=== PATIENT | male | born 1970 | race Caucasian/White ===

== ENCOUNTER 2024-11-08 15:58 | Inpatient (IN) | payer MEDICAID, OTHER ==
[~2024-11-08] VITALS: Ht 170.2 cm; Wt 99.3 kg
[~2024-11-08 15:58] MED LIST: QUET200T PO; QUET300T2 PO
[2024-11-08 16:27] LABS: PLATELET COUNT (AUTO) 257 K/uL (150-450); RED BLOOD CELL COUNT(AUTO) 5.65 MIL/uL (4.50-5.90); RED CELL DISTRIBUTION WIDTH 13.8 % (11.5-14.5); WHITE BLOOD COUNT (AUTO) 13.5 K/uL (4.5-11.0)
[2024-11-08 16:38] LABS: CALCIUM, TOTAL 8.8 mg/dL (8.8-10.5); CREATININE 0.97 mg/dL (0.60-1.30); GLOMERULAR FILTR. RATE CALC > 60 mL/min (>60); GLUCOSE,RANDOM 167 mg/dL (70-110); SODIUM SERUM 140 mmol/L (136-145); UREA NITROGEN, BLOOD 23 mg/dL (7-18)
[2024-11-08] MEDS: POTASSIUM CHLORIDE 20 MEQ ER TABLET PO ONE (18:09)
[2024-11-08] MEDS ORDERED: ZOLPIDEM TARTRATE 10 MG TABLET PO PRN (18:45)
[2024-11-08 19:48] LABS: COVID AG,FIA SOURCE NASAL SWAB
[2024-11-08 20:06] LABS: SARS-COV2 (COVID) ANTIGEN,FIA Negative (Negative)
[2024-11-08 20:07] LABS: ALCOHOL, URINE DRUG SCREEN NEGATIVE (NEGATIVE); AMPHET/METH SCREEN,URINE NEGATIVE (NEGATIVE); BARBITURATE SCREEN, URINE NEGATIVE (NEGATIVE); CANNABINOID SCREEN,URINE NEGATIVE (NEGATIVE); COCAINE SCREEN,URINE NEGATIVE (NEGATIVE); METHADONE SCREEN, URINE NEGATIVE (NEGATIVE)
[2024-11-08 20:08] LABS: PH,URINE DRUG SCREEN 6.0 (5.0-8.0)
[2024-11-09] MEDS: POTASSIUM CHLORIDE 20 MEQ ER TABLET PO ONE (00:58)
[2024-11-09 02:19] VITALS: O2SAT 95
[2024-11-09 03:36] LABS: GLUCOMETER DEV NAME(LOC) BV3S.2; GLUCOSE,POINT OF CARE 182 MG/DL (70-110)
[2024-11-09] MEDS ORDERED: MAGNESIUM HYDROXIDE SUSPENSION 30 ML UDCUP PO PRN (08:15)
[2024-11-09] MEDS ORDERED: BACITRACIN 28 GM OINTMENT TP PRN (08:15)
[2024-11-09] MEDS ORDERED: OMEPRAZOLE 20 MG CAPSULE PO PRN (08:15)
[2024-11-09] MEDS ORDERED: ALBUTEROL SULFATE HFA 90 MCG/PUFF 8 GM INHALER IH PRN (08:15)
[2024-11-09] MEDS ORDERED: MAG HYDROX/ALUMINUM HYD/SIMETH ES 30 ML SUSPENSION UDCUP PO PRN (08:15)
[2024-11-09] MEDS ORDERED: ONDANSETRON 4 MG TABLET PO PRN (08:15)
[2024-11-09] MEDS ORDERED: IBUPROFEN 600 MG TABLET PO PRN (08:15)
[2024-11-09] MEDS ORDERED: DOCUSATE SODIUM 100 MG CAPSULE PO PRN (08:15)
[2024-11-09] MEDS ORDERED: PETROLATUM,WHITE 28 GM JELLY TP PRN (08:15)
[2024-11-09 08:30] VITALS: RESP 18
[2024-11-09 09:16] LABS: PLATELET COUNT (AUTO) 243 K/uL (150-450); RED BLOOD CELL COUNT(AUTO) 5.42 MIL/uL (4.50-5.90); RED CELL DISTRIBUTION WIDTH 14.1 % (11.5-14.5); WHITE BLOOD COUNT (AUTO) 9.9 K/uL (4.5-11.0)
[2024-11-09 09:34] LABS: ASPARTATE AMINOTRANSFERASE 235 U/L (15-37); CALCIUM, TOTAL 8.6 mg/dL (8.8-10.5); CHOL/HDL RATIO 3.2 (4.2-7.3); CREATININE 0.87 mg/dL (0.60-1.30); GLOMERULAR FILTR. RATE CALC > 60 mL/min (>60); GLUCOSE,RANDOM 189 mg/dL (70-110); LDL CHOL (CALC.) 58 mg/dL (0-130); SODIUM SERUM 138 mmol/L (136-145); TOTAL PROTEIN, SERUM 7.5 g/dL (6.4-8.2); UREA NITROGEN, BLOOD 17 mg/dL (7-18)
[2024-11-09] MEDS ORDERED: GLUCAGON,HUMAN RECOMBINANT 1 MG VIAL IM PRN (10:15)
[2024-11-09] MEDS: BRIMONIDINE TARTRATE 0.2% 5 ML OPHTHALMIC SOLUTION OU SCH (10:15)
[2024-11-09] MEDS: INSULIN LISPRO 100 UNITS/ML SQ PRN (11:07)
[2024-11-09] MEDS: EMPAGLIFLOZIN 25 MG TABLET PO SCH (11:09)
[2024-11-09] MEDS: ASPIRIN 81 MG DR TABLET PO SCH (11:09)
[2024-11-09 19:41] LABS: GLUCOMETER DEV NAME(LOC) BV3S.2; GLUCOSE,POINT OF CARE 156 MG/DL (70-110)
[2024-11-09 19:41] LABS: GLUCOMETER DEV NAME(LOC) BV3S.2; GLUCOSE,POINT OF CARE 191 MG/DL (70-110)
[2024-11-09 20:08] VITALS: BP 132/86; PULSE 99; RESP 18; TEMP 98.3; O2SAT 97
[2024-11-09] MEDS: ATORVASTATIN CALCIUM 20 MG TABLET PO SCH (20:55)
[2024-11-10 06:55] LABS: GLUCOMETER DEV NAME(LOC) BV3S.2; GLUCOSE,POINT OF CARE 162 MG/DL (70-110)
[2024-11-10 06:55] LABS: GLUCOMETER DEV NAME(LOC) BV3S.2; GLUCOSE,POINT OF CARE 163 MG/DL (70-110)
[2024-11-10 08:22] VITALS: BP 141/79; PULSE 97; RESP 17; TEMP 98.1; O2SAT 99
[2024-11-10 10:15] LABS: ASPARTATE AMINOTRANSFERASE 170 U/L (15-37); CALCIUM, TOTAL 8.4 mg/dL (8.8-10.5); CREATININE 0.77 mg/dL (0.60-1.30); GLOMERULAR FILTR. RATE CALC > 60 mL/min (>60); GLUCOSE,RANDOM 151 mg/dL (70-110); SODIUM SERUM 137 mmol/L (136-145); TOTAL PROTEIN, SERUM 7.3 g/dL (6.4-8.2); UREA NITROGEN, BLOOD 12 mg/dL (7-18)
[2024-11-10 20:18] VITALS: BP 143/69; PULSE 100; RESP 18; TEMP 98.4; O2SAT 98
[2024-11-11 02:16] LABS: GLUCOMETER DEV NAME(LOC) BV3S.2; GLUCOSE,POINT OF CARE 153 MG/DL (70-110)
[2024-11-11 02:16] LABS: GLUCOMETER DEV NAME(LOC) BV3S.2; GLUCOSE,POINT OF CARE 140 MG/DL (70-110)
[2024-11-11] MEDS: ACETAMINOPHEN 325 MG TABLET PO PRN (05:03)
[2024-11-11 05:05] VITALS: RESP 18
[2024-11-11 06:00] LABS: GLUCOMETER DEV NAME(LOC) BV3S.2; GLUCOSE,POINT OF CARE 256 MG/DL (70-110)
[2024-11-11 06:06] VITALS: RESP 18
[2024-11-11 08:04] VITALS: BP 123/76; PULSE 100; RESP 18; TEMP 98.4; O2SAT 98
[2024-11-11] MEDS: PALIPERIDONE PALMITATE 234 MG/1.5 ML SYRINGE IM SCH (08:10)
[2024-11-11 17:40] LABS: GLUCOMETER DEV NAME(LOC) BV3S.2; GLUCOSE,POINT OF CARE 81 MG/DL (70-110)
[2024-11-11 17:40] LABS: GLUCOMETER DEV NAME(LOC) BV3S.2; GLUCOSE,POINT OF CARE 137 MG/DL (70-110)
[2024-11-11 20:16] VITALS: BP 130/80; PULSE 65; RESP 18; TEMP 97.3; O2SAT 96
[2024-11-12 00:38] VITALS: BP 130/74; PULSE 110; RESP 20; TEMP 97.9; O2SAT 98
[2024-11-12 05:40] LABS: GLUCOMETER DEV NAME(LOC) BV3S.2; GLUCOSE,POINT OF CARE 134 MG/DL (70-110)
[2024-11-12 08:52] VITALS: BP 155/85; PULSE 110; RESP 18; TEMP 98.4; O2SAT 98
[2024-11-12 12:10] LABS: GLUCOMETER DEV NAME(LOC) BV3S.2; GLUCOSE,POINT OF CARE 151 MG/DL (70-110)
[2024-11-12 17:15] LABS: GLUCOMETER DEV NAME(LOC) BV3S.2; GLUCOSE,POINT OF CARE 193 MG/DL (70-110)
[2024-11-12 20:09] VITALS: BP 136/76; PULSE 99; RESP 18; TEMP 98.1; O2SAT 98
[2024-11-12 21:16] LABS: GLUCOMETER DEV NAME(LOC) BV3S.2; GLUCOSE,POINT OF CARE 102 MG/DL (70-110)
[2024-11-13] MEDS: BENZOCAINE/MENTHOL [CEPACOL] LOZENGE PO PRN (06:32)
[2024-11-13 08:28] VITALS: BP 121/74; PULSE 95; RESP 18; TEMP 97.6; O2SAT 98
[2024-11-13 20:11] VITALS: BP 133/81; PULSE 100; RESP 18; TEMP 98.4; O2SAT 96
[2024-11-13 20:22] VITALS: BP 136/80; PULSE 96; RESP 20; TEMP 98.3; O2SAT 98
[2024-11-14 08:37] VITALS: BP 124/75; PULSE 102; RESP 18; TEMP 98.6; O2SAT 98
[2024-11-14 20:26] VITALS: BP 156/86; PULSE 115; RESP 17; TEMP 99.7; O2SAT 99
[2024-11-14 22:40] LABS: GLUCOMETER DEV NAME(LOC) BV2S.; GLUCOSE,POINT OF CARE 152 MG/DL (70-110)
[2024-11-14 22:40] LABS: GLUCOMETER DEV NAME(LOC) BV2S.; GLUCOSE,POINT OF CARE 140 MG/DL (70-110)
[2024-11-14 22:40] LABS: GLUCOMETER DEV NAME(LOC) BV2S.; GLUCOSE,POINT OF CARE 147 MG/DL (70-110)
[2024-11-14 22:40] LABS: GLUCOMETER DEV NAME(LOC) BV2S.; GLUCOSE,POINT OF CARE 193 MG/DL (70-110)
[2024-11-14 22:40] LABS: GLUCOMETER DEV NAME(LOC) BV2S.; GLUCOSE,POINT OF CARE 320 MG/DL (70-110)
[2024-11-14 22:40] LABS: GLUCOMETER DEV NAME(LOC) BV2S.; GLUCOSE,POINT OF CARE 141 MG/DL (70-110)
[2024-11-14 22:40] LABS: GLUCOMETER DEV NAME(LOC) BV2S.; GLUCOSE,POINT OF CARE 255 MG/DL (70-110)
[2024-11-14 22:40] LABS: GLUCOMETER DEV NAME(LOC) BV2S.; GLUCOSE,POINT OF CARE 198 MG/DL (70-110)
[2024-11-14 23:05] VITALS: BP 109/70; PULSE 61; RESP 17; TEMP 97.3; O2SAT 100
[2024-11-15 08:38] VITALS: BP 133/87; PULSE 105; RESP 18; TEMP 98.1; O2SAT 98
[2024-11-15 20:09] VITALS: BP 138/77; PULSE 97; RESP 18; TEMP 97.7; O2SAT 95
[2024-11-16 06:26] LABS: GLUCOMETER DEV NAME(LOC) BV2S.; GLUCOSE,POINT OF CARE 229 MG/DL (70-110)
[2024-11-16 06:26] LABS: GLUCOMETER DEV NAME(LOC) BV2S.; GLUCOSE,POINT OF CARE 306 MG/DL (70-110)
[2024-11-16 06:26] LABS: GLUCOMETER DEV NAME(LOC) BV2S.; GLUCOSE,POINT OF CARE 337 MG/DL (70-110)
[2024-11-16 08:03] VITALS: BP 124/89; PULSE 101; RESP 18; TEMP 97.2; O2SAT 98
[2024-11-16 20:06] VITALS: BP 129/92; PULSE 99; RESP 17; TEMP 98; O2SAT 98
[2024-11-17] MEDS: LOPERAMIDE HCL 2 MG CAPSULE PO PRN (05:34)
[2024-11-17 08:03] VITALS: BP 141/93; PULSE 103; RESP 18; TEMP 97.6; O2SAT 97
[2024-11-17 20:05] VITALS: BP 146/87; PULSE 62; RESP 18; TEMP 98.4; O2SAT 98
[2024-11-17 22:11] LABS: GLUCOMETER DEV NAME(LOC) BV2S.; GLUCOSE,POINT OF CARE 205 MG/DL (70-110)
[2024-11-17 22:11] LABS: GLUCOMETER DEV NAME(LOC) BV2S.; GLUCOSE,POINT OF CARE 151 MG/DL (70-110)
[2024-11-17 22:11] LABS: GLUCOMETER DEV NAME(LOC) BV2S.; GLUCOSE,POINT OF CARE 278 MG/DL (70-110)
[2024-11-17 22:11] LABS: GLUCOMETER DEV NAME(LOC) BV2S.; GLUCOSE,POINT OF CARE 302 MG/DL (70-110)
[2024-11-17 22:11] LABS: GLUCOMETER DEV NAME(LOC) BV2S.; GLUCOSE,POINT OF CARE 134 MG/DL (70-110)
[2024-11-17 22:11] LABS: GLUCOMETER DEV NAME(LOC) BV2S.; GLUCOSE,POINT OF CARE 146 MG/DL (70-110)
[2024-11-17 22:11] LABS: GLUCOMETER DEV NAME(LOC) BV2S.; GLUCOSE,POINT OF CARE 190 MG/DL (70-110)
[2024-11-18 06:51] LABS: GLUCOMETER DEV NAME(LOC) BV2S.; GLUCOSE,POINT OF CARE 354 MG/DL (70-110)
[2024-11-18 20:06] VITALS: BP 134/80; PULSE 100; RESP 18; TEMP 98.5; O2SAT 99
[2024-11-19 00:21] LABS: GLUCOMETER DEV NAME(LOC) BV2S.; GLUCOSE,POINT OF CARE 236 MG/DL (70-110)
[2024-11-19 00:21] LABS: GLUCOMETER DEV NAME(LOC) BV2S.; GLUCOSE,POINT OF CARE 133 MG/DL (70-110)
[2024-11-19 00:21] LABS: GLUCOMETER DEV NAME(LOC) BV2S.; GLUCOSE,POINT OF CARE 153 MG/DL (70-110)
[2024-11-19 06:26] LABS: GLUCOMETER DEV NAME(LOC) BV2S.; GLUCOSE,POINT OF CARE 184 MG/DL (70-110)
[2024-11-19 08:30] VITALS: BP 140/78; PULSE 95; RESP 18; TEMP 97.8; O2SAT 98
[2024-11-19 20:17] VITALS: BP 121/82; PULSE 100; RESP 18; TEMP 98.1; O2SAT 96
[2024-11-19 23:40] LABS: GLUCOMETER DEV NAME(LOC) BV2S.; GLUCOSE,POINT OF CARE 174 MG/DL (70-110)
[2024-11-19 23:40] LABS: GLUCOMETER DEV NAME(LOC) BV2S.; GLUCOSE,POINT OF CARE 294 MG/DL (70-110)
[2024-11-19 23:40] LABS: GLUCOMETER DEV NAME(LOC) BV2S.; GLUCOSE,POINT OF CARE 168 MG/DL (70-110)
[2024-11-20 06:16] LABS: GLUCOMETER DEV NAME(LOC) BV2S.; GLUCOSE,POINT OF CARE 138 MG/DL (70-110)
[2024-11-20 08:05] VITALS: BP 144/87; RESP 16; TEMP 97.6; O2SAT 96
[2024-11-20 20:34] VITALS: BP 111/64; PULSE 95; RESP 18; TEMP 97.7; O2SAT 96
[2024-11-21 08:02] VITALS: BP 114/73; PULSE 92; RESP 16; TEMP 98.1; O2SAT 97
[2024-11-21] MEDS ORDERED: QUET300T5 PO (13:37)
== END 2024-11-21 14:40 | disposition home or self-care (01) | DRG 750 ==
LOC: EMS 15:58 → B3A 11-09 00:24
PROVIDERS: ADMIT Psychiatry & Neurology Psychiatry; ATTEND Psychiatry & Neurology Psychiatry
DX: F20.9 Schizophrenia, unspecified (principal); K74.60 Unspecified cirrhosis of liver; Z91.148 Patient's other noncompliance with medication regimen for other reason; E78.5 Hyperlipidemia, unspecified; F41.9 Anxiety disorder, unspecified; G47.00 Insomnia, unspecified; I10 Essential (primary) hypertension; Z20.822 Contact with and (suspected) exposure to COVID-19; H40.9 Unspecified glaucoma; K59.00 Constipation, unspecified; F10.90 Alcohol use, unspecified, uncomplicated; Y90.0 Blood alcohol level of less than 20 mg/100 ml; Z87.891 Personal history of nicotine dependence
CPT/HCPCS: 80048; 80053; 80061; 80307; 82962; 83036; 84132; 84436; 84439; 84443; 85025; 99285; G0480